=== PATIENT | female | born 1960 | race Caucasian/White ===

== ENCOUNTER 2018-09-19 01:33 | Outpatient (CLI) | payer MEDICAID, SELFPAY ==
--- NOTE | 2018-09-19 07:45 | DI.MAMMO_ITS ---
SYMPTOM/DIAGNOSIS: SCREENING Z12.31 MAMMOGRAM: 09/19 Mammograms were interpreted according to the usual protocol including computer analysis with CAD system, tomosynthesis and C view imaging. The breasts are heterogeneously dense. No dominant mass or clumped microcalcification is identified in either breast. The current examination is compared with previous examinations including May 2014 and there has been no gross interval change in appearance in comparison with the previous studies. CONCLUSION: No specific evidence of malignancy at this time. Routine screening examinations are suggested at yearly intervals due to the family history of breast carcinoma. Category 1, breast density Category C. MQSA ASSESSMENT OF FINDINGS: Negative. Category 1. Patient will receive a letter notifying them of these results. Bi-RADS category C. The breasts are heterogeneously dense, which may obscure small masses.
[2018-09-19 09:26] LABS: CREATININE 0.91 mg/dL (0.55-1.02); Calcium 8.9 mg/dL (8.5-10.1); Chloride 100 mmol/L (98-107); Cholesterol 206 mg/dL (50-200); Glucose 96 mg/dL (70-100); HDL Cholesterol 76 mg/dL (40-60); LDL CHOLESTEROL 116 mg/dL (<100); Potassium 4.1 mmol/L (3.5-5.1); Sodium 137 mmol/L (136-145); Triglyceride 87 mg/dL (30-150)
[2018-09-19 10:09] LABS: BUN 16 mg/dL (7-18)
== END 2018-09-19 01:53 ==
PROVIDERS: PCP Physician Assistant; Visit Provider Physician Assistant
DX: Z12.31 Encounter for screening mammogram for malignant neoplasm of breast (principal); Z80.3 Family history of malignant neoplasm of breast; Z13.220 Encounter for screening for lipoid disorders; Z13.6 Encounter for screening for cardiovascular disorders
CPT/HCPCS: 36415; 77063; 77067; 80048; 80061; 83721

== ENCOUNTER 2021-08-29 00:13 | Outpatient (CLI) | payer MEDICAID, SELFPAY ==
--- NOTE | 2021-08-29 09:13 | DI.MAMMO_ITS ---
Exam(s) MAMMO SCREENING EXAM: MAMMO SCREENING CLINICAL HISTORY: SCREENING EXAM FOR BREAST CANCER Z12.31 TECHNIQUE: Bilateral full field digital CC and MLO mammographic images were obtained with 3D tomosyn thesis and utilizing computer aided detection (CAD). COMPARISON: Available for comparison. FINDINGS: Masses/Architectural Distortion: There is a 1.4 cm partially obscured nodule in the upper inner quadr ant of the left breast. It has shown slight increase in size compared to the prior examination. Spo t compression view is requested. Microcalcifications: No suspicious pleomorphic-type are seen. Skin Thickening/Nipple Retraction: None. IMPRESSION: 1. Slight interval increase in size of the partially obscured nodule in the upper inner quadrant of t he left breast. 2. Further evaluation with a spot compression view and left breast ultrasound are recommended. BI-RADS Category 0 - Assessment Incomplete: Need additional imaging evaluation Breast Density - Category C - Heterogeneously dense Breast density category C or D implies that the patient has dense breast tissue. Dense breast tissue is very common and is not abnormal but dense breast tissue can make it harder to find cancer on a ma mmogram. Also, dense breast tissue may increase their breast cancer risk. This information about the result of the mammogram report was provided to the patient to raise their awareness. Use this report when you speak with the patient about their risks for breast cancer, which includes their family hist ory. At that time, you may recommend for more screening tests (Ultrasound or MRI) as they might be us eful based on their risk. A negative radiographic report should not delay biopsy if a dominant or clinically suspicious mass is present. Up to ten percent of cancers are not identified on mammography. A negative report may reinforce clinical impression. Adenosis and dense breasts may obscure an underlying neoplasm. False positive reports average 6 to 10%. Patient will receive a letter notifying them of these results.
== END 2021-08-29 00:33 ==
PROVIDERS: PCP Physician Assistant; Visit Provider Physician Assistant
DX: Z12.31 Encounter for screening mammogram for malignant neoplasm of breast (principal); R92.8 Other abnormal and inconclusive findings on diagnostic imaging of breast
CPT/HCPCS: 77063; 77067

== ENCOUNTER 2021-09-02 00:47 | Outpatient (CLI) | payer MEDICAID, SELFPAY ==
--- NOTE | 2021-09-02 13:30 | DI.MAMMO_ITS ---
Exam(s) MG MAMMO SCREEN CALL BACK UNI US BREAST LT COMPLETE EXAM: US BREAST LT COMPLETE CLINICAL HISTORY: SLIGHT INCREASE NODULE UPPER INNER QUADRANT LT BREAST TECHNIQUE: Ultrasound performed using standard protocol. COMPARISON: No exams were available for comparison FINDINGS: Additional mammographic views of the left breast and left breast ultrasound are interpreted in conjun ction. These examinations were obtained to evaluate a lobulated mass of the medial superior portion of the left breast seen on recent mammogram. Compression views confirm a fairly well-circumscribed a lthough incompletely visualized mass which is lobulated. Breast ultrasound shows a septated cyst in the 11 o'clock position measuring about 12 millimeters in greatest diameter corresponding to the mamm ographically identified mass. A couple of other small cysts are also noted in the left breast, in th e 12 o'clock position. No solid mass is identified. IMPRESSION: The left breast medial superior mass is confirmed as a bilobed cyst. No solid mass identified. Rout ine screening recommended in 12 months. BI-RADS Cat 2 - Benign Findings Breast Density - Category C - Heterogeneously dense DATA REPOSITORY:
== END 2021-09-02 01:07 ==
PROVIDERS: PCP Physician Assistant; Visit Provider Physician Assistant
DX: R92.8 Other abnormal and inconclusive findings on diagnostic imaging of breast (principal); N60.02 Solitary cyst of left breast
CPT/HCPCS: 76642; 77063; 77067

== ENCOUNTER → 2022-10-19 01:43 | Outpatient (CLI) | payer MEDICAID, SELFPAY ==
--- NOTE | 2022-10-19 08:04 | DI.MAMMO_ITS ---
Exam(s) MAMMO SCREENING EXAM: MAMMO SCREENING CLINICAL HISTORY: SCREENING,Z12.31. TECHNIQUE: Bilateral full field digital CC and MLO mammographic images were obtained with 3D tomosyn thesis and utilizing computer aided detection (CAD). COMPARISON: Prior mammograms were reviewed. Prior ultrasound examination of August 2021 also reviewed FINDINGS: Fibroglandular tissue pattern is again noted be moderately dense, this somewhat decreasing the sensit ivity of the mammogram for finding hidden underlying lesions. There are no new significant radiograph findings in the right breast. In the left breast the previously described nodular density located 9 cm in from the nipple on the ML O view is again noted and appears unchanged. This was shown to be a cyst on prior ultrasound. On the present study there 2 new additional nodular density seen in the left breast, both slightly lo bulated noncalcified. On the MLO view 1 of these is located 3 cm in from the nipple and measures rosario roximately 7 x 5 millimeters. The other is located approximately 10 cm in from the nipple on the MLO view and measures approximately 11 x 6 millimeters. There are no malignant-appearing microcalcifica tion groups in these nodules nor elsewhere in either breast. Benign microcalcifications are noted an d are unchanged. There is no significant architectural distortion nor skin thickening-retraction. IMPRESSION: Moderately dense fibroglandular tissue. No radiographic evidence of malignancy in the right breast. There are 3 left breast nodular densities as described above, 1 of which was shown to be a cyst on pr ior ultrasound examination of the August 2021. Two other new nodular densities are noted in the le ft breast. Spot compression MLO views and complete left breast ultrasound recommended. BI-RADS Category 0 - Assessment Incomplete: Need additional imaging evaluation Breast Density - Category C - Heterogeneously dense Breast density Category C or D implies that the patient has dense breast tissue. Dense breast tissue can make it harder to find cancer on a mammogram. Dense breast tissue is also associated with an incr eased risk of breast cancer. This information about the result of the mammogram report was provided to the patient to raise their awareness. Use this report when you speak with the patient about their risks for breast cancer, which includes their family history. At that time, you may recommend additional screening tests (Ultrasoun d or MRI) as these tests may add significant information. A negative radiographic report should not delay biopsy if a dominant or clinically suspicious mass is present. Up to ten percent of cancers are not identified on mammography. A negative report may reinforce clinical impression. Adenosis and dense breasts may obscure an underlying neoplasm. False positive reports average 6 to 10%. Patient will receive a letter notifying them of these results.
== END ==
PROVIDERS: PCP Physician Assistant; Visit Provider Physician Assistant
DX: Z12.31 Encounter for screening mammogram for malignant neoplasm of breast (principal); R92.8 Other abnormal and inconclusive findings on diagnostic imaging of breast
CPT/HCPCS: 77063; 77067

== ENCOUNTER 2022-10-19 08:11 | Outpatient (CLI) | payer MEDICAID, SELFPAY ==
[2022-10-19 09:16] LABS: ALT 22 U/L (14-59); AST 23 U/L (15-37); Albumin 4.5 g/dL (3.4-5.0); Alkaline Phosphatase 65 U/L (46-116); Anion Gap 8.1 mmol/L (3-11); BUN 12 mg/dL (7-18); Bilirubin, Total 0.5 mg/dL (0.2-1.0); CO2 27.9 mmol/L (21.0-32.0); Calcium 9.2 mg/dL (8.5-10.1); Calculated LDL 145 mg/dL (<100); Chloride 101 mmol/L (98-107); Cholesterol 244 mg/dL (<200); Estimated GFR 64.09 (mL/min/1.73m2); Glucose 106 mg/dL (74-106); HDL Cholesterol 77 mg/dL (40-60); Sodium 137 mmol/L (136-145); Total Protein 8.1 g/dL (6.4-8.2); Triglyceride 114 mg/dL (<150)
== END 2022-10-19 08:12 | disposition home or self-care (01) ==
PROVIDERS: PCP Physician Assistant; Visit Provider Physician Assistant
DX: I10 Essential (primary) hypertension (principal); E78.5 Hyperlipidemia, unspecified
CPT/HCPCS: 36415; 80053; 80061

== ENCOUNTER 2022-10-24 02:16 | Outpatient (CLI) | payer MEDICAID, SELFPAY ==
--- NOTE | 2022-10-24 | DI.MAMMO_ITS ---
Exam(s) MG MAMMO SCREEN CALL BACK UNI US BREAST LT COMPLETE EXAM: MG MAMMO SCREEN CALL BACK UNI-LEFT AND COMPLETE LEFT BREAST ULTRASOUND CLINICAL HISTORY: F/U MAMMO, R92.8,TWO NEW NODULAR DENSITIES. TECHNIQUE: Unilateral spot mammographic images obtained with 3D tomosynthesisand utilizing computer aided detection (CAD). . Complete LEFT breast Ultrasound was also performed, including all 4 quadrants, the retroareolar regio n, and the ipsilateral axilla. COMPARISON: Prior mammograms were reviewed. This additional imaging was performed due to findings described on the recent screening mammogram of 10/19/2022. Prior ultrasound examination of 09/02/2021 was also reviewed. FINDINGS: DIAGNOSTIC MAMMOGRAM: Additional mammographic views performed todayreveal that the nodules appear to persist. We proceeded with ultrasound COMPLETE LEFT BREAST ULTRASOUND: Ultrasound performed today reveals 2 findings at the 10-11 o'clock positions. Firstly, there is an 8 x 7 millimeter septated microcyst which is unchanged from the prior study of N [id number]. The other finding is an 8 x 5 millimeter septated cyst almost adjacent to the above findings and this corresponds to the other finding on the mammogram. There is no 3rd ultrasound finding to correspond to the 3rd finding on the mammogram which is therefo re probably either cyst which is resolved or benign intramammary lymph node. Scanning of the ipsilateral axilla reveals no significant adenopathy. IMPRESSION: 1. Benign-appearing findings as described above. Appropriate follow-up as discussed by myself with the patient today is repeat left breast mammogram a nd ultrasound in 6 months. The patient was informed of these findings and recommendations by myself prior to leaving the departm ent today. BI-RADS Category 3 - 6 month - Probably Benign Finding: Recommend follow-up mammography in 6 months Breast Density - Category C - Heterogeneously dense Breast density Category C or D implies that the patient has dense breast tissue. Dense breast tissue can make it harder to find cancer on a mammogram. Dense breast tissue is also associated with an incr eased risk of breast cancer. This information about the result of the mammogram report was provided to the patient to raise their awareness. Use this report when you speak with the patient about their risks for breast cancer, which includes their family history. At that time, you may recommend additional screening tests (Ultrasoun d or MRI) as these tests may add significant information. A negative radiographic report should not delay biopsy if a dominant or clinically suspicious mass is present. Up to ten percent of cancers are not identified on mammography. A negative report may reinforce clinical impression. Adenosis and dense breasts may obscure an underlying neoplasm. False positive reports average 6 to 10%. Patient will receive a letter notifying them of these results.
== END 2022-10-24 02:36 ==
LOC: DI 02:16
PROVIDERS: PCP Physician Assistant; Visit Provider Physician Assistant
DX: R92.8 Other abnormal and inconclusive findings on diagnostic imaging of breast (principal); Z12.31 Encounter for screening mammogram for malignant neoplasm of breast
CPT/HCPCS: 76642; 77063; 77067

== ENCOUNTER 2023-05-04 00:49 | Outpatient (CLI) | payer MEDICAID, SELFPAY ==
--- NOTE | 2023-05-04 | DI.MAMMO_ITS ---
Exam(s) US BREAST LT COMPLETE MG MAMMO DIAGNOSTIC UNI EXAM: MG MAMMO DIAGNOSTIC UNI-LEFT AND COMPLETE LEFT BREAST ULTRASOUND CLINICAL HISTORY: F/U MAMMO, 6 MO F/U, R92,8. TECHNIQUE: Unilateral LEFT BREAST CC AND MLO mammographic images were obtained with 3D tomosynthesis technique and utilizing computer aided detection (CAD). COMPLETE LEFT BREAST ULTRASOUND was performed including all 4 quadrants as well as the axilla. COMPARISON: Prior mammograms were reviewed, the most recent being October 2022.. Ultrasound October 2022 was also reviewed. FINDINGS: DIAGNOSTIC LEFT BREAST MAMMOGRAM: The previously described nodular densities remain mammographically stable. No new additional nodules . No malignant-appearing microcalcification groups. COMPLETE LEFT BREAST ULTRASOUND: Findings remain stable from the ultrasound examination of 10/24/2022. There is a small benign-appearing lymph node at the 2 o'clock position. 10 o'clock position previously present 5 x 4 millimeter microcyst remain stable. At the 11 o'clock position the previously described septated cyst remains stable, presently measuring approximately 8 by 6 mm. No new solid lesions in all 4 quadrants. Scanning of the left axilla is negative for adenopathy. IMPRESSION: Stable left breast mammographic and ultrasound findings Appropriate follow-up is to keep this patient on a yearly mammogram schedule, this implying that her next bilateral mammogram would be in September 2023, with earlier imaging if a self detected breast ch ramiro is noted.. The patient was informed of the findings and follow-up recommendations by myself prior to leaving the department today. BI-RADS Category 3 - 6 month - Probably Benign Finding: Recommend follow-up mammography in 6 months Breast Density - Category B - Scattered areas of fibroglandular density Breast density Category C or D implies that the patient has dense breast tissue. Dense breast tissue can make it harder to find cancer on a mammogram. Dense breast tissue is also associated with an incr eased risk of breast cancer. This information about the result of the mammogram report was provided to the patient to raise their awareness. Use this report when you speak with the patient about their risks for breast cancer, which includes their family history. At that time, you may recommend additional screening tests (Ultrasoun d or MRI) as these tests may add significant information. A negative radiographic report should not delay biopsy if a dominant or clinically suspicious mass is present. Up to ten percent of cancers are not identified on mammography. A negative report may reinforce clinical impression. Adenosis and dense breasts may obscure an underlying neoplasm. False positive reports average 6 to 10%. Patient will receive a letter notifying them of these results.
== END 2023-05-04 01:09 ==
LOC: DI 00:52
PROVIDERS: PCP Physician Assistant; Visit Provider Physician Assistant
DX: Z12.31 Encounter for screening mammogram for malignant neoplasm of breast (principal); R92.8 Other abnormal and inconclusive findings on diagnostic imaging of breast
CPT/HCPCS: 76642; 77061; 77065; G0279

== ENCOUNTER 2023-06-03 16:19 | Emergency (ER) | payer MEDICAID, SELFPAY ==
[2023-06-03 16:33] VITALS: BP 191/68; PULSE 75; RESP 16; TEMP 36.7; O2SAT 100
--- NOTE | 2023-06-03 16:38 | ED.GENADUL_ITS ---
Discharge Plan Disposition Patient Disposition: Home Condition: Stable Discharge Details Clinical Impression: Rash Primary Care Provider: Alicja Ponce ED Provider: Jennifer Mccracken Home Meds and New Rx's Prescriptions: Continued metronidazole 59 ML lotion 1 applic Topical QHS Qty: 59 acetaminophen-codeine [Tylenol-Codeine #3] 1 EACH tablet 1 ea PO Q4H PRN Qty: 20 0RF ibuprofen 600 MG tablet 600 mg PO Q6H PRN Qty: 25 0RF Discharge Instructions Instructions: Acute Rash (ED) Additional Instructions: Monitor area for changes See primary care provider for possible biopsy if area changes or does not improve Referrals: Alicja Ponce [Primary Care Provider] - Discharge Data Discharge Date/Time-TO BE ENTERED AT DEPARTURE: 06/03/23 17:11 HPI General Mode of arrival: ambulatory . Date/Time Provider Initiated Documentation: 06/03/23 16:23 . Limitations to Documentation: no limitations . Information obtained by: patient . HPI Narrative: Presents for evaluation of a macule that she noticed on her shoulder after gardening. Denies any pain itching no surrounding erythema no drainage denies any similar history Related Data Home Medications Medication Instructions Recorded Confirmed metronidazole 0.75 % lotion 1 applic topical QHS #59 mL 09/25/13 acetaminophen 300 mg-codeine 30 mg 1 ea PO Q4H PRN ##20 01/26/14 tablet (Tylenol-Codeine #3) ibuprofen 600 mg tablet 600 mg PO Q6H PRN ##25 01/26/14 Previous Rx's Medication Instructions Recorded acetaminophen 300 mg-codeine 30 mg 1 ea PO Q4H PRN ##20 01/26/14 tablet (Tylenol-Codeine #3) ibuprofen 600 mg tablet 600 mg PO Q6H PRN ##25 01/26/14 Allergies Allergy/AdvReac Type Severity Reaction Status Date / Time No Known Allergies Allergy Unverified 06/03/23 16:38 General Stated Complaint: InsectBite KARAN: 4 Review of Systems All systems reviewed & are unremarkable except as noted in HPI and below PFSH All Active Problems (Updated 06/03/23 @ 16:53 by Jennifer Mccracken, [facility]) Rash (Acute) Family History Mother No problems noted. Father Diabetes Personal history of malignant neoplasm bladder Hyperlipidemia Sister Essential hypertension Personal history of malignant neoplasm uterine Brother Essential hypertension Grandfather Chronic obstructive lung disease Grandfather No problems noted. Grandmother Personal history of malignant neoplasm breast Grandmother Diabetes Social History Smoking/Tobacco Use Status: Never Smoking risk assessment performed?: Yes Alcohol Intake: current Alcohol Intake frequency: a few times a month Drug use: Never Substance use type: does not use Housing: house Do you feel safe at home: Yes Do you feel safe in your relationship?: Yes Exam Const General: cooperative, healthy appearing and comfortable Nutritional Appearance: average body habitus Orientation: alert, awake and oriented x3 HENMT Head: normal to inspection, normocephalic and atraumatic Mouth: oral mucosae normal Skin Lesions: no lesions Rashes: other (1 cm round red macule on her right shoulder not raised) Course Vital Signs Vital signs: Vital Signs Temperature 36.7 C 06/03/23 16:33 Pulse 75 06/03/23 16:33 Respiratory Rate 16 06/03/23 16:33 Blood Pressure 191/68 H 06/03/23 16:33 Pulse Oximetry 100 06/03/23 16:33 Temperature 36.7 C 06/03/23 16:33 Temperature Source Tympanic 06/03/23 16:33 Pulse 75 06/03/23 16:33 Respiratory Rate 16 06/03/23 16:33 Respiratory Effort Normal 06/03/23 16:36 Blood Pressure 191/68 H 06/03/23 16:33 Pulse Oximetry 100 06/03/23 16:33 Oxygen Delivery Method Room Air 06/03/23 16:33 Oxygen Flow Rate 0 06/03/23 16:33 PAWSS Have you Been Recently Intoxicated or Drunk Within the Last 30 days?: No Have you Ever Experienced Previous Episodes of Alcohol Withdrawal?: No Have you ever Experienced Withdrawal Seizures?: No Have you ever Experienced Delirium Tremens(DT)s?: No Have you ever undergone Alcohol Rehabilitation Treatment (i.e, inpt ot outpatient treatment programs)?: No Have you ever Experienced Blackouts?: No Have you ever Combined Alcohol with other Downers within the last 90 days?: No Result: 0
== END 2023-06-03 17:11 | disposition home or self-care (01) ==
PROVIDERS: Emergency Provider Nurse Practitioner Acute Care; PCP Physician Assistant
DX: R21 Rash and other nonspecific skin eruption (principal)
CPT/HCPCS: 99282

== ENCOUNTER 2023-09-21 16:28 | Observation (INO) | payer MEDICAID, SELFPAY ==
[2023-09-21] VITALS (51 sets, daily range): BP systolic 112–161; BP diastolic 30–121; PULSE 49–68; RESP 11–28; TEMP 36.5–36.6; O2SAT 99–100
--- NOTE | 2023-09-21 16:30 | RT.EKG_ITS ---
APPROVED REPORT Exam: Resting ECG Reason for Exam: Bradycardia Patient Location: E HR:41 bpm ECG Measurements Heart Rate 41 AXIS HI [id number] P [id number] QRSd 78 QRS 59 QT 520 T 80 QTc 430 Conclusion Junctional rhythm...absent P waves, slow V-rate Anterior infarct, old...Q >40mS, abnormal ST-T, V2-V5 Abnormal T, consider ischemia, lateral leads...T <-0.20mV, I aVL V5 V6 I have reviewed and interpreted ECG and agree with software generated interpretation.
--- NOTE | 2023-09-21 16:45 | RT.EKG_ITS ---
APPROVED REPORT Exam: Resting ECG Reason for Exam: repeat Patient Location: E HR:53 bpm ECG Measurements Heart Rate 53 AXIS WA 160 P 60 QRSd 73 QRS 59 QT 454 T 67 QTc 420 Conclusion Sinus bradycardia...rate< 60 Atrial premature complex...SV complex w/ short R-R interval sinus ploi @ 53 normal axis and intervals normal ST
[2023-09-21] MEDS: Lactated Ringers 1,000 ML 1000 ML IV (16:59)
--- NOTE | 2023-09-21 17:15 | NUR.NOTE ---
Nursing Note: Directly after triaging patient, pt was to go to waiting room as nose bleed had stopped at the time and lack of rooms; before standing up pt states i feel really hot and like im about to pass out layed pt down and retook vitals, heart rate was in the low 40's and BP was 47/18, 49/26, and 45/19; immediately got and EKG and IV access, EKG showed junctional rhythm, pt was brought to room 2 and placed on ZOLL and pads. once pt got into room she states I am starting to feel a lot better vitals showed HR in the upper 50's and BP of 152/49, retook EKG and it showed sinus bradycardia.
--- NOTE | 2023-09-21 17:17 | ED.GENADUL_ITS ---
Discharge Plan Disposition Patient Disposition: Admit to [facility] Condition: Good Discharge Details Clinical Impression: Junctional bradycardia Primary Care Provider: Alicja Ponce ED Provider: El Miller Medical Decision Making Patient had presented with nosebleed but developed junctional rhythm at triage. She was symptomatic with this for 10 to 15 minutes. She was brought back into a room and pacer pads were applied but not turned on. She was going to receive 0.5 of atropine, but returned to sinus bradycardia with return of color and feeling back to normal. She is given a liter of LR. She is maintained on the monitor. Laboratory studies sent. Her repeat EKG is sinus bradycardia with no acute ST changes. Patient's laboratory studies are unremarkable. Initial troponin is negative. Repeat troponin is negative. I did send EKGs to [facility] and spoke to cardiology, Dr. Onofre, regarding patient presentation. Recommendation is to admit here on telemetry overnight to monitor for any further episodes. If none and patient stable discharge with Zio patch for monitoring and follow-up with cardiology. Discussed with hospitalist, patient to be observation admitted overnight. Discussed with patient who agrees to admission. Lab Data Lab results reviewed: Yes I reviewed the patient's lab results. ECG Data Attestation: I personally reviewed and interpreted this ECG (s) as follows: Interpretation: EKG x2 -see MDM HPI General Mode of arrival: ambulatory . Date/Time Provider Initiated Documentation: 09/21/23 16:53 . Limitations to Documentation: no limitations . Information obtained by: patient . HPI Narrative: Patient presents to ED with complaint of nosebleed. Patient reports nosebleed earlier today with recurrent nosebleed this afternoon. Currently no bleeding. There was no injury. She has not had if she is with nosebleeds in the past. She has not been ill. During triage she became diaphoretic, pale, lightheaded and complained of not feeling well at all. She was laid back flat in the chair thinking this was related to a vagal event. She did not recover very quickly so IV was established and EKG obtained from triage. Patient was found to be in a junctional rhythm with a rate of 40. She denies having any type of chest pain or pressure. She denies shortness of breath. She denies previous syncope or near syncope events. She has no significant past medical history and does not take medications. Related Data Allergies Allergy/AdvReac Type Severity Reaction Status Date / Time No Known Allergies Allergy Unverified 09/21/23 16:37 General Stated Complaint: Epistaxis KARAN: 4 Review of Systems Narrative: Per HPI PFSH All Active Problems (Updated 09/21/23 @ 20:54 by El Miller MD) Junctional bradycardia (Acute) Medical History No significant past medical history Family History Mother No problems noted. Father Diabetes Personal history of malignant neoplasm bladder Hyperlipidemia Sister Essential hypertension Personal history of malignant neoplasm uterine Brother Essential hypertension Grandfather Chronic obstructive lung disease Grandfather No problems noted. Grandmother Personal history of malignant neoplasm breast Grandmother Diabetes Social History Smoking/Tobacco Use Status: Never Smoking risk assessment performed?: Yes Alcohol Intake: current Alcohol Intake frequency: a few times a month Drug use: Never Substance use type: does not use Housing: house Do you feel safe at home: Yes Do you feel safe in your relationship?: Yes Exam Narrative Exam Narrative: Const: WDWN female in NAD. HEENT: NC/AT. Normal facial exam. Right nares with polyp-like lesion anterior septum with no active bleeding. Left nares mildly inflamed. Eyes: Normal conjunctiva and sclera. Neck: Supple. Trachea midline. Lungs: Normal respiratory effort. Lungs are clear. Cor: RRR without murmur/gallop. Good radial pulses. GI: Soft. NT/ND. Neuro: A+O x 3. Normal speech, mentation, gait. Cranial nerves II - XII grossly intact. No gross motor or sensory deficit. Ext: No C/C/E. Skin: Warm and dry without rash. Course Vital Signs Vital signs: Vital Signs Temperature 97.9 F 09/21/23 16:32 Pulse 61 09/21/23 16:32 Respiratory Rate 20 09/21/23 16:32 Blood Pressure 140/52 L 09/21/23 16:32 Pulse Oximetry 100 09/21/23 16:32 Temperature 97.9 F 09/21/23 16:32 Temperature Source Skin 09/21/23 16:32 Pulse 61 09/21/23 16:32 Respiratory Rate 17 09/21/23 17:06 Respiratory Effort Normal 09/21/23 17:06 Respiratory Depth Normal 09/21/23 17:06 Respiratory Pattern Normal 09/21/23 17:06 Blood Pressure 140/52 L 09/21/23 16:32 Blood Pressure Position Sitting 09/21/23 16:32 Pulse Oximetry 100 09/21/23 16:32 Oxygen Delivery Method Room Air 09/21/23 16:32 Oxygen Flow Rate 0 09/21/23 16:32 Pain Level 0 09/21/23 16:32
[2023-09-21 17:21] LABS: Abs Immature Grans 0.02 10^3/uL (0.0-0.06); Absolute Basophil Count 0.06 10^3/uL (0.0-0.2); Absolute Eosinophil Count 0.01 10^3/uL (0.0-0.7); Absolute Lymphocyte Count 2.81 10^3/uL (1.2-3.4); Absolute Monocyte Count 0.51 10^3/uL (0.1-0.8); Absolute Neutrophil Count 6.49 10^3/uL (1.2-6.7); Basophils % 0.6; Eosinophils % 0.1; HCT 39.1 % (36.0-46.0); HGB 13.1 g/dL (11.2-15.7); Immature Grans % 0.2; Lymphocytes % 28.4; MCH 30.5 pg (27.0-33.0); MCHC 33.5 % (32.0-36.0); MCV 91 fL (80-95); MPV 9.7 fL (8.0-11.0); Monocytes % 5.2; Neutrophils % 65.5; Platelet Count 339 10^3/uL (130-400); RDW 11.8 % (11.7-14.6); RDW-SD 39.1 fL
--- NOTE | 2023-09-21 17:31 | NUR.NOTE ---
Nursing Note: pt was very shaky, took BG with fingerstick and it was 66, informed MD, gave apple juice, crackers and peanutbutter.
[2023-09-21 17:38] LABS: ALT 18 U/L (14-59); AST 15 U/L (15-37); Alkaline Phosphatase 62 U/L (46-116); Anion Gap 8.9 mmol/L (3-11); BUN 16 mg/dL (7-18); Bilirubin, Total 0.4 mg/dL (0.2-1.0); CO2 26.1 mmol/L (21.0-32.0); CREATININE 0.9 mg/dL (0.55-1.02); Chloride 102 mmol/L (98-107); Estimated GFR 72.28 (mL/min/1.73m2); Glucose 117 mg/dL (74-106); Magnesium 2.1 mg/dL (1.8-2.4); Potassium 3.5 mmol/L (3.5-5.1); Sodium 137 mmol/L (136-145); Total Protein 7.3 g/dL (6.4-8.2); Troponin I < 50 ng/L (<or=60)
[2023-09-21 20:26] LABS: Troponin I < 50 ng/L (<or=60)
[2023-09-21] MEDS: Lactated Ringers 1,000 ML 75 ML IV (22:46)
[2023-09-22 04:38] VITALS: BP 127/64; PULSE 46; RESP 16; TEMP 36.5; O2SAT 99
--- NOTE | 2023-09-22 05:59 | W.PM.HP.N ---
Date of service: 09/21/23 Time of Service: 19:00 Assessment and Plan Assessment and plan (1) Vaso vagal episode: Status: Acute Assessment and plan: Patient appears to have experienced a vagal episode while in the ED. Its not clear what induced this episode. The plan is to place her on a 2-week heart monitor upon discharge with further follow-up with her PCP. (2) Epistaxis: Status: Acute Assessment and plan: Initial presentation was because of an episode of epistaxis. This appears to have self resolved and no treatment was given for this. She has had no recurrent bleeding since admission. (3) Junctional bradycardia: Status: Acute Assessment and plan: An EKG obtained during the vagal episode showed a junctional rhythm which resolved on subsequent EKG to a sinus bradycardia. She has been monitored over the last 12 hours without any episode of junctional rhythm. Dr. Miller had contacted [facility] cardiology and they recommended monitoring and a 2-week monitoring coordinator after discharge. History of Present Illness History of Present Illness Chief Complaint: Vagal episode/bradycardia Narrative: 63-year-old woman who presented to the emergency room because of an episode of epistaxis. She states that she had been having profuse bleeding from her nares for about 1-1/2 hours, became concerned and had her drive her to the emergency room. Upon arrival in the emergency room the bleeding appeared to have stopped. She was being walked to a lower acuity room when she suddenly felt weak and faint. An EKG was obtained immediately that showed a junctional rhythm and a heart rate of 40. She was monitored and found to return to a sinus rhythm after about 15 minutes. She is being admitted to observation for further monitoring. Review of Systems Narrative: Patient has been feeling well. She had no preceding upper respiratory infection or other illness. She has never had cardiac or respiratory problems. Lifelong non-smoker. She has never had any surgeries. She has never had a . This was her first instance of a vagal episode. She said she has had a panic attack in the past but it was a long time ago. She cannot recall anything that was upsetting or might have induced a panic attack for this event. [facility] All Active Problems (Updated 09/22/23 @ 06:08 by Zachary Rincon MD) Epistaxis (Acute) Vaso vagal episode (Acute) Junctional bradycardia (Acute) Medical History No significant past medical history Family History Mother No problems noted. Father Diabetes Personal history of malignant neoplasm bladder Hyperlipidemia Sister Essential hypertension Personal history of malignant neoplasm uterine Brother Essential hypertension Grandfather Chronic obstructive lung disease Grandfather No problems noted. Grandmother Personal history of malignant neoplasm breast Grandmother Diabetes Social History Smoking/Tobacco Use Status: Never Smoking risk assessment performed?: Yes Alcohol Intake: current Alcohol Intake frequency: a few times a month Drug use: Never Substance use type: does not use Housing: house Do you feel safe at home: Yes Do you feel safe in your relationship?: Yes Female Reproductive History Menstrual Menopause type: natural Meds Allergies and Home Medications Allergies Allergy/AdvReac Type Severity Reaction Status Date / Time No Known Allergies Allergy Unverified 09/21/23 16:37 Home Medications Medication Instructions Recorded Confirmed Type Unknown [No Known Home Meds] 09/21/23 09/21/23 History Exam Narrative Exam Narrative: On exam she is in no apparent distress. She is fully cognizant and cooperative. She is able to give a good history. She had no respiratory distress. Her lung exam was completely clear on the right and left. Heart sounds were somewhat bradycardic but regular. Clear S1 and S2, no murmur. Her abdomen was soft and overall nontender. No masses were palpable. Lower extremities showed normal musculature no evidence of edema. Both lower extremities appeared well perfused. Neurologically she is moving all extremities and showed no decrement of function. The nares was inspected and appeared to be normal. There was no evidence of bleeding. Per Dr. Miller's evaluation there appeared to be a minor erosion in the anterior nares which I did not observe. Results Labs 09/21/23 16:50 09/21/23 16:50 Labs: Laboratory Results - last 24 hr 09/21/23 09/21/23 16:50 20:00 WBC 9.90 RBC 4.30 Hgb 13.1 Hct 39.1 MCV 91 MCH 30.5 MCHC 33.5 RDW 11.8 Plt Count 339 MPV 9.7 Immature Gran % 0.2 Neutrophils % 65.5 Lymphocytes % 28.4 Monocytes % 5.2 Eosinophils % 0.1 Basophils % 0.6 Nucleated RBC % 0.0 Absolute Neutrophils 6.49 Absolute Lymphocytes 2.81 Absolute Monocytes 0.51 Absolute Eosinophils 0.01 Absolute Basophils 0.06 Sodium 137 Potassium 3.5 Chloride 102 Carbon Dioxide 26.1 Anion Gap 8.9 BUN 16 Creatinine 0.9 Est GFR (CKD-EPI 2020) 72.28 Glucose 117 H Calcium 9.0 Magnesium 2.1 Total Bilirubin 0.4 AST 15 ALT 18 Alkaline Phosphatase 62 Troponin I < 50 < 50 Total Protein 7.3 Albumin 4.0 Last Vital Signs Temp 36.5 C 09/22/23 04:38 Pulse 46 L 09/22/23 04:38 Resp 16 09/22/23 04:38 BP 127/64 09/22/23 04:38 Pulse Ox 99 09/22/23 04:38 PAWSS Pt Consumed Any Amount of Alcohol Within the Last 30 days OR had positive JALEN Upon Admission: No Time Spent Time spent with Patient: 40-54 minutes Time was spent: preparing to see the patient(eg.review tests), obtaining and/or reviewing separately otained hiistory, ordering medications,tests, procedures, referring, communicating with other health senior care provider, indepentently interpreting results, counseling the patient and care coordination
[2023-09-22 07:20] LABS: Abs Immature Grans 0.02 10^3/uL (0.0-0.06); Absolute Basophil Count 0.05 10^3/uL (0.0-0.2); Absolute Eosinophil Count 0.02 10^3/uL (0.0-0.7); Absolute Lymphocyte Count 3.26 10^3/uL (1.2-3.4); Absolute Monocyte Count 0.62 10^3/uL (0.1-0.8); Absolute Neutrophil Count 3.89 10^3/uL (1.2-6.7); Basophils % 0.6; Eosinophils % 0.3; HCT 38.8 % (36.0-46.0); HGB 12.9 g/dL (11.2-15.7); Immature Grans % 0.3; Lymphocytes % 41.5; MCH 30.8 pg (27.0-33.0); MCHC 33.2 % (32.0-36.0); MCV 93 fL (80-95); MPV 9.7 fL (8.0-11.0); Monocytes % 7.9; Neutrophils % 49.4; Platelet Count 306 10^3/uL (130-400); RBC 4.19 10^6/uL (3.93-5.22); RDW 11.9 % (11.7-14.6); RDW-SD 40.7 fL; WBC 7.86 10^3/uL (4.4-10.8)
[2023-09-22 07:30] LABS: Anion Gap 8.6 mmol/L (3-11); BUN 11 mg/dL (7-18); CO2 28.4 mmol/L (21.0-32.0); CREATININE 0.9 mg/dL (0.55-1.02); Calcium 8.6 mg/dL (8.5-10.1); Chloride 104 mmol/L (98-107); Estimated GFR 72.28 (mL/min/1.73m2); Glucose 88 mg/dL (74-106); Potassium 3.8 mmol/L (3.5-5.1); Sodium 141 mmol/L (136-145)
[2023-09-22 08:13] VITALS: BP 152/78; PULSE 76; RESP 16; TEMP 37; O2SAT 97
[2023-09-22 09:25] VITALS: BP 169/79; PULSE 72; RESP 16; O2SAT 100
--- NOTE | 2023-09-22 09:48 | W.PM.DS.N ---
Date of service: 09/22/23 Time of Service: 09:48 DS: Diagnosis Discharge Diagnosis (1) Vaso vagal episode: Status: Acute Asessment and Plan: Patient experienced a vagal episode while in the emergency department during ambulation. She was found to have a junctional rhythm on EKG with some borderline bradycardia at that resolved on its own. She was monitored on telemetry overnight did not have any additional episodes of significant bradycardia or ongoing junctional rhythm. She was also intubated throughout the unit and did not experience any lightheadedness, dizziness, chest pain, and telemetry during this time remain normal. -14-day rn cardiac ordered for the patient (2) Epistaxis: Status: Acute Asessment and Plan: - Resolved upon arrival to the emergency department (3) Junctional bradycardia: Status: Acute Asessment and Plan: - As noted above Discharge Plan Disposition Condition: Good Condition: Good Discharge Details Reason For Visit: Vagal episode Admit Date/Time: 09/21/23 20:30 Admit Provider: Zachary Rincon Attending Provider: Zachary Rincon Primary Care Provider: Alicja Ponce Hospital Course Hospital Course: Patient initially presented to the emergency department for an episode of epistaxis which resolved upon presenting the emergency department. However, treat underlying she suddenly felt weak and faint and EKG showed a junctional rhythm with a heart rate of 40. She was admitted overnight for observation and telemetry overnight did not show any concerns though she did have borderline bradycardia with a heart rate in the high 50s. She was also ambulated with telemetry around the unit patient felt well, and did not have any arrhythmia noted on her rhythm strip. Which time was determined that this patient was stable for discharge home and will have order for 14-day Holter monitor. Discharge Instructions Activity:: Activity as Tolerated Equipment/Supplies:: No Equipment Needed Diet:: As Tolerated Discharge Orders Other Ambulatory Orders: 14 Day Molded Goods Spot Picker (Routine) Timeframe: 10 Day Facility: [facility] - Location: Respiratory Therapy Ordered By: Navarro Levi DS: Summary Time Spent with Patient providing and/or coordinating discharge services: Greater than 30 minutes Status at Discharge Functional status at discharge: independent ambulation Overall status at discharge: patient is back to baseline Mental Status: mental status grossly normal Speech and Movement: speech and movement normal Mood: congruent mood Affect: normal affect Exam Narrative Exam Narrative: Well-appearing female sitting up in the edge of the bed in no acute distress, ANO x4, heart regular rate rhythm, lungs clear to auscultation bilaterally Psych Mental Status: mental status grossly normal Speech and Movement: speech and movement normal Mood: congruent mood Affect: normal affect DS: Data Vitals/I&O Vitals and I&O: Vital Signs Temperature 98.6 F 09/22/23 08:13 Temperature Source Tympanic 09/22/23 08:13 Pulse 72 09/22/23 09:25 Pulse Rhythm Regular 09/22/23 08:20 Pulse 56 L 09/21/23 21:50 Respiratory Rate 16 09/22/23 09:25 Respiratory Effort Normal, Non-Labored 09/22/23 08:20 Respiratory Depth Normal 09/22/23 08:20 Respiratory Pattern Normal 09/22/23 08:20 Blood Pressure 169/79 H 09/22/23 09:25 Blood Pressure Mean 80 09/21/23 21:47 Blood Pressure Position Sitting 09/21/23 16:32 Pulse Oximetry 100 09/22/23 09:25 Oxygen Delivery Method Room Air 09/22/23 09:25 Oxygen Flow Rate 0 09/22/23 09:25 Pain Level 0 09/22/23 08:13 Intake & Output 09/21/23 09/22/23 09/22/23 17:59 05:59 17:59 Intake Total 1000 / 1000 Output Total 300 / 300 Balance 700 / 700 Weight 136 lb 136 lb Intake: IV 1000 / 1000 Output: Urine 300 / 300 Other: Urine Color Pale Urine Appearance Clear Clear Comment per patient she voided in toilet Voiding Methods Toilet Data Completed and Pending Labs on day of discharge: Labs from last 24 hours 09/22/23 09/21/23 09/21/23 06:50 20:00 16:50 WBC 7.86 9.90 RBC 4.19 4.30 Hgb 12.9 13.1 Hct 38.8 39.1 MCV 93 91 MCH 30.8 30.5 MCHC 33.2 33.5 RDW 11.9 11.8 Plt Count 306 339 MPV 9.7 9.7 Immature Gran % 0.3 0.2 Neutrophils % 49.4 65.5 Lymphocytes % 41.5 28.4 Monocytes % 7.9 5.2 Eosinophils % 0.3 0.1 Basophils % 0.6 0.6 Nucleated RBC % 0.0 0.0 Absolute Neutrophils 3.89 6.49 Absolute Lymphocytes 3.26 2.81 Absolute Monocytes 0.62 0.51 Absolute Eosinophils 0.02 0.01 Absolute Basophils 0.05 0.06 Sodium 141 137 Potassium 3.8 3.5 Chloride 104 102 Carbon Dioxide 28.4 26.1 Anion Gap 8.6 8.9 BUN 11 16 Creatinine 0.9 0.9 Est GFR (CKD-EPI 2020) 72.28 72.28 Glucose 88 117 H Calcium 8.6 9.0 Magnesium 2.1 Total Bilirubin 0.4 AST 15 ALT 18 Alkaline Phosphatase 62 Troponin I < 50 < 50 Total Protein 7.3 Albumin 4.0 PFSH All Active Problems (Updated 09/22/23 @ 06:08 by Zachary Rincon MD) Epistaxis (Acute) Vaso vagal episode (Acute) Junctional bradycardia (Acute) Medical History No significant past medical history Family History Mother No problems noted. Father Diabetes Personal history of malignant neoplasm bladder Hyperlipidemia Sister Essential hypertension Personal history of malignant neoplasm uterine Brother Essential hypertension Grandfather Chronic obstructive lung disease Grandfather No problems noted. Grandmother Personal history of malignant neoplasm breast Grandmother Diabetes Social History Smoking/Tobacco Use Status: Never Smoking risk assessment performed?: Yes Alcohol Intake: current Alcohol Intake frequency: a few times a month Drug use: Never Substance use type: does not use Housing: house Do you feel safe at home: Yes Do you feel safe in your relationship?: Yes Female Reproductive History Menstrual Menopause type: natural Time Spent with Patient Time Spent with Patient: 45-69 minutes Time was spent: preparing to see the patient(eg.review tests), obtaining and/or reviewing separately otained hiistory, ordering medications,tests, procedures, referring, communicating with other health veterinarian laboratory animal care, indepentently interpreting results, counseling the patient and care coordination
--- NOTE | 2023-09-22 11:20 | PDOC.CMPRO ---
Date of service: 09/22/23 Time of Service: 11:20 Care Management Progress Note Progress Note Text Progress Note Text: Latia was seen in the ED yesterday for epistaxis. The bleeding stopped when she arrived at the ED however she experienced a vagal/syncopal episode. She was observed overnight and had no further issues. Latia was dressed and ready for discharge when CM met with her. She stated she felt well and denied the need for any services. She will discharge home and be transported via private vehicle with her .
== END 2023-09-22 11:14 | disposition home or self-care (01) ==
LOC: ER 20:54 → MS 22:01
PROVIDERS: Admitting Provider Family Medicine; Emergency Provider Emergency Medicine; PCP Physician Assistant; Visit Provider Family Medicine
DX: R55 Syncope and collapse (principal); R00.1 Bradycardia, unspecified; R04.0 Epistaxis
CPT/HCPCS: 00123; 36415; 36416; 80048; 80053; 82962; 93005; 93270; 96360; 96361; 96374; 99285; 83735; 84484; 85025; 93010; 99222; 99239; G0378

== ENCOUNTER → 2023-10-25 02:17 | Outpatient (CLI) | payer MEDICAID, SELFPAY ==
--- NOTE | 2023-10-25 07:48 | DI.MAMMO_ITS ---
Exam(s) MAMMO SCREENING EXAM: MAMMO SCREENING CLINICAL HISTORY: SCREENING,Z12.31 TECHNIQUE: Bilateral full field digital CC and MLO mammographic images were obtained with 3D tomosyn thesis and utilizing computer aided detection (CAD). COMPARISON: Available for comparison. FINDINGS: Masses/Architectural Distortion: The nodules in the medial aspect of the left breast appears stable. No new nodules are seen in the breast. No areas of architectural distortion are present. Microcalcifications: No suspicious pleomorphic-type are seen. Skin Thickening/Nipple Retraction: None. IMPRESSION: 1. No significant interval change with no specific features of malignancy noted. 2. Unless there is more urgent need, screening mammography is recommended, as per [employer] guidelines. BI-RADS Category 2 - Benign Findings Breast Density - Category C - Heterogeneously dense Breast density category C or D implies that the patient has dense breast tissue. Dense breast tissue is very common and is not abnormal but dense breast tissue can make it harder to find cancer on a ma mmogram. Also, dense breast tissue may increase their breast cancer risk. This information about the result of the mammogram report was provided to the patient to raise their awareness. Use this report when you speak with the patient about their risks for breast cancer, which includes their family hist ory. At that time, you may recommend for more screening tests (Ultrasound or MRI) as they might be us eful based on their risk. A negative radiographic report should not delay biopsy if a dominant or clinically suspicious mass is present. Up to ten percent of cancers are not identified on mammography. A negative report may reinforce clinical impression. Adenosis and dense breasts may obscure an underlying neoplasm. False positive reports average 6 to 10%. Patient will receive a letter notifying them of these results.
== END ==
PROVIDERS: PCP Physician Assistant; Visit Provider Physician Assistant
DX: Z12.31 Encounter for screening mammogram for malignant neoplasm of breast (principal)
CPT/HCPCS: 77063; 77067

== ENCOUNTER 2023-10-29 07:12 | Outpatient (CLI) | payer MEDICAID, SELFPAY ==
--- NOTE | 2023-10-29 09:18 | W.CARDEVENT ---
Date of service: 10/29/23 Time of Service: 09:18 Cardiac Event Recorder Referring Provider:: Amita Indications:: Bradycardia,unspecified Cardiac Event Note: 1. The underlying rhythm is sinus, rate range 41 to 135 bpm, average 57 bpm. The bradycardias and tachycardias were physiologic, occurring during sleep or activity respectively. 2. No supraventricular or ventricular ectopy noted 3. No pauses noted
== END 2023-10-29 07:13 | disposition home or self-care (01) ==
LOC: CARDOPNVT 07:12
PROVIDERS: PCP Physician Assistant; Visit Provider Internal Medicine Interventional Cardiology
DX: R00.1 Bradycardia, unspecified (principal)
CPT/HCPCS: 00123

== ENCOUNTER → 2023-12-21 00:48 | Outpatient (CLI) | payer MEDICAID, SELFPAY ==
--- NOTE | 2023-12-21 | DI.RAD_ITS ---
Exam(s) XR LUMBAR SPINE COMPLETE EXAM: XR LUMBAR SPINE COMPLETE CLINICAL HISTORY: LUMBAR BACK PAIN WITH RADICULOPATHY,M54.16. TECHNIQUE: 2D digital imaging was performed. Five views. COMPARISON: No exams were available for comparison FINDINGS: BONES: No fracture or destructive lesion. Vertebral body heights are maintained. Minimal endplate os teophytes. Mild facet degenerative changes at L5-S1. DISKS: Mild narrowing of the L2-3 disc. Severe narrowing of the L5-S1 disc space. ALIGNMENT: Lumbar spinal alignment is within normal limits. SOFT TISSUE: Normal. IMPRESSION: Advanced degenerative disc changes at L5-S1. Mild degenerative changes at L2-3. DATA REPOSITORY: RADIATION DOSE DELIVERED:
--- NOTE | 2023-12-21 | DI.RAD_ITS ---
Exam(s) XR HIP LT COMPLETE AP PELVIS EXAM: XR HIP LT COMPLETE AP PELVIS CLINICAL HISTORY: LT HIP PAIN,M25.552. TECHNIQUE: 2D digital imaging was performed. Two views. COMPARISON: No exams were available for comparison FINDINGS: BONES: No acute fracture is present. No bony destructive lesion is seen. JOINTS: No dislocation present. The joint spaces are maintained. No significant acetabular spurrin g. SI joints and pubic symphysis are unremarkable. SOFT TISSUE: Normal. IMPRESSION: Unremarkable radiographs of the left hip. Unremarkable radiographs of the pelvis DATA REPOSITORY: RADIATION DOSE DELIVERED:
== END ==
PROVIDERS: PCP Physician Assistant; Visit Provider Physician Assistant
DX: M51.16 Intervertebral disc disorders with radiculopathy, lumbar region (principal)
CPT/HCPCS: 72110; 73502

== ENCOUNTER 2025-03-31 14:57 | Outpatient (REF) | payer MEDICAID, SELFPAY ==
[2025-03-31 11:42] LABS: Bilirubin Negative (Negative); Blood Trace-intact (Negative); Clarity Sl Cloudy (Clear); Glucose Negative (Negative); Ketones Negative (Negative); Leukocyte Esterase Negative (Negative); Nitrite Negative (Negative); Urobilinogen 0.2 mg/dL (Up to 0.2)
[2025-03-31 11:50] LABS: Bacteria Rare HPF (Negative); C & S Indicated? No; Casts Negative LPF (Negative); Crystals Negative HPF (Negative); Epithelial Cells Few HPF (Negative); Mucus Negative (Negative); WBC 0-2 HPF (0-5)
== END 2025-03-31 14:58 | disposition home or self-care (01) ==
LOC: LBN 14:57
PROVIDERS: PCP Physician Assistant; Visit Provider Family Medicine
DX: N39.0 Urinary tract infection, site not specified (principal)
CPT/HCPCS: 81003; 81015

== ENCOUNTER 2025-04-09 00:45 | Outpatient (CLI) | payer MEDICAID, SELFPAY ==
[2025-04-09 11:15] LABS: CREATININE 0.8 mg/dL (0.55-1.02); Estimated GFR 82.74 (mL/min/1.73m2)
[2025-04-09] MEDS: Omnipaque 350 MG/ML 100 ML BTL IJ (11:35)
[2025-04-09] MEDS: Normal Saline - Diluent 50 ML VIAL IJ (11:39)
--- NOTE | 2025-04-09 11:55 | DI.CT_ITS ---
Exam(s) CT ABDOMEN PELVIS WO/W EXAM: CT ABDOMEN PELVIS WO/W CLINICAL HISTORY: Microscopic hematuria, R31.29 TECHNIQUE: Imaging Protocol: Axial computed tomography images with coronal and sagittal reformatted images were created and reviewed. CONTRAST MATERIAL: Intravenous: Omnipaque 350 Contrast volume:100 mL Oral: No COMPARISON: CT RENAL COLIC WO CONTRAST from 01/25/2014 FINDINGS: ABDOMEN: Lung Bases: No acute abnormality. Liver: Normal density. No measurable mass. Portal, Superior Mesenteric, and Splenic Veins: Unremarkable. Gallbladder and Biliary Tract: No radiodense calculus or dilation. Pancreas: Normal density, no abnormal calcifications or inflammatory process. Spleen: Normal. Adrenals: No masses seen. Kidneys: Normal size, contour and axis. No radiodense stones or obstructive uropathy. There is a 1.1 cm simple cyst in the left kidney. No follow-up is recommended. Abdominal Aorta: Abdominal portion non-dilated. Minimal atherosclerotic calcification is present. Bowel: No obstruction or bowel wall thickening. No evidence of appendicitis. Peritoneal Cavity: There is a small amount of free fluid in the right adnexa. No free air. Lymph Nodes: Within normal limits. Bones: Within normal limits for the patient's age. Soft Tissues: Unremarkable. PELVIS: Bladder: Symmetric distention, no gross wall thickening. Reproductive Organs: Uterine fibroids are present. The largest measures 2.3 cm. Lymph Nodes: Within normal limits. Bones: Within normal limits for the patient's age. IMPRESSION: 1. No evidence of nephrolithiasis or hydronephrosis. Unremarkable urinary bladder. 2. 1.1 cm simple left renal cyst. No follow-up is recommended. 3. Uterine fibroids. RADIATION DOSE DELIVERED: 1,263.6mGy.cm Total DLP 1,263.6mGy.cm Total DLP DATA REPOSITORY: All CT scans at this facility are submitted to the National Radiology Data Registry (NRDR) Dose Index Registry (DIR) with the [employer] (A[employer]). RADIATION OPTIMIZATION: All CT scans at this facility use at least one of these dose optimization techniques: automated exposure control; mA and/or kV adjustment per patient size (includes targeted exams where dose is matched to clinical indication); or iterative reconstruction.
== END 2025-04-09 01:05 ==
LOC: DI 00:46
PROVIDERS: PCP Physician Assistant; Visit Provider Family Medicine
DX: R31.29 Other microscopic hematuria (principal)
CPT/HCPCS: 74178; 82565; J3490